=== PATIENT | male | born 1985 | race African-American/Black ===

== ENCOUNTER 2019-07-11 22:24 | Emergency (ER) | payer BC ==
[~2019-07-11] VITALS: Ht 185.4 cm; Wt 78.5 kg
--- NOTE | 2019-07-11 22:45 | NUR ---
ED Nurse Note: pt presents to ED c/o upper toothache that is now causing pain throughout the entire L side of his face. pt reports the px has been ongoing for a couple months, he has not been evaluated by a dentist. pt states he has been using listerine and salt water to keep the area clean. upon inspection, there appears to be some swelling to the affected area. he does not have any other complaints at this time
[2019-07-11 22:48] VITALS: BP 109/62
[2019-07-11] MEDS ORDERED: HYDROCODON-ACE1 EA15 ORAL (22:58)
[2019-07-11] MEDS ORDERED: AMOXICILLIN500 MG ORAL (22:58)
[2019-07-11] MEDS ORDERED: IBUPROFEN600 M1 ORAL (22:58)
--- NOTE | 2019-07-11 22:59 | Emergency Room Report ---
History of Present Illness General Chief Complaint: Toothache Source: Patient Present Illness HPI This a 34-year-old male with no past medical history. He presents with chief complaint of dental pain. About 2-3 weeks ago was eating and his tooth cracked. Since then is been having intermittent pain. No swelling. Pain is 7 out of 10. No fever chills but no bleeding. Having seen a dentist for this. Nothing made it better. Hot and cold water or liquid made it worse. Allergies: Coded Allergies: No Known Allergies (Unverified , 07/11/19) COVID-19 Screening Contact w/high risk pt: No Recent Travel to affected area: No Experienced COVID-19 symptoms?: No Patient History Past Medical History: see triage record, old chart reviewed Past Surgical History: none Pertinent Family History: none Social History: Denies: smoking Immunizations: other Reviewed Nursing Documentation: PMH: Agreed; PSxH: Agreed Nursing Documentation-PMH Past Medical History: No Stated History Review of Systems Eye: Denies: eye pain, blurred vision ENT: Denies: ear pain, nose congestion, throat swelling Respiratory: Denies: cough, shortness of breath Cardiovascular: Denies: chest pain, palpitations Gastrointestinal: Denies: abdominal pain, diarrhea, nausea, vomiting Musculoskeletal: Denies: back pain, joint pain Skin: Denies: rash Neurological: Denies: headache, numbness Endocrine: Denies: increased thirst, increased urine Hematologic/Lymphatic: Denies: easy bruising All Other Systems: negative except mentioned in HPI Physical Exam Vital Signs Date Time Temp Pulse Resp B/P (MAP) Pulse Ox O2 Delivery O2 Flow Rate FiO2 07/11/19 22:38 98.1 73 20 109/62 (78) 98 Room Air vitals normal Sp02 EP Interpretation: reviewed, normal General Appearance: well appearing, no apparent distress, alert Head: normocephalic, atraumatic Eyes: bilateral eye PERRL, bilateral eye EOMI ENT: hearing grossly normal, normal pharynx, other - Poor dentition. Left upper wisdom tooth is decayed down to the nub. Tender to palpation. No abscess. Neck: full range of motion, supple, no meningismus Respiratory: chest non-tender, lungs clear, normal breath sounds Cardiovascular #1: regular rate, rhythm, no murmur Gastrointestinal: normal bowel sounds, non tender, no mass, no organomegaly, no bruit, non-distended Musculoskeletal: back normal, normal range of motion, gait/station normal Psychiatric: mood/affect normal Medical Decision Making Diagnostic Impression: Primary Impression: Toothache ER Course Patient presents with dental pain. No abscess seen. Last Vital Signs Date Time Temp Pulse Resp B/P (MAP) Pulse Ox O2 Delivery O2 Flow Rate FiO2 07/11/19 22:48 98.1 82 20 109/62 98 Room Air Status: improved Disposition: HOME, SELF-CARE Condition: Stable Scripts Ibuprofen* (MOTRIN*) 600 Mg Tablet 600 MG ORAL Q6H PRN for For Pain, #30 TAB 0 Refills Prov: Serafin Yuan MD 07/11/19 Hydrocodone/Acetaminophen 5-325* (HYDROCODONE/ACETAMINOPHEN 5-325*) 1 Each Tablet 1 TAB ORAL Q6H PRN for For Pain, #10 TAB 0 Refills Prov: Serafin Yuan MD 07/11/19 Amoxicillin* (AMOXIL*) 500 Mg Capsule 500 MG ORAL THREE TIMES A DAY, #21 CAP Prov: Serafin Yuan MD 07/11/19 Patient Instructions: Dental Pain Additional Instructions: Follow-up with dentist REYNA. Return if worse. Serafin Yuan MD July 11, 2019 22:58
[2019-07-11] MEDS ORDERED: HYDROcodone/Acetamin 5/325 tab ORAL ONE (23:00)
[2019-07-11 23:06] VITALS: BP 109/62
--- NOTE | 2019-07-11 23:06 | NUR ---
ER DISCHARGE NOTE: Patient is cleared to be discharged per ERMD, pt is aox4, on room air, with stable vital signs. pt was given dc and prescription instructions, pt was able to verbalize understanding, pt id band removed without complications. pt is able to ambulate with steady gait. pt took all belongings.
== END 2019-07-11 23:06 | disposition home or self-care (01) ==
LOC: EMR 22:35
DX: K08.89 Other specified disorders of teeth and supporting structures (principal)
CPT/HCPCS: 99282